=== PATIENT | female | born 1960 | race Caucasian/White ===

== ENCOUNTER 2016-08-18 12:05 | Emergency (ER) | payer SELFPAY ==
[2016-08-18 13:16] LABS: BASOPHILS 0.2 % (0.0-2.0); EOSINOPHILS 0.9 % (0-7); HEMATOCRIT 41.7 % (36.0-48.0); IMMATURE GRANULOCYTES 0.2 % (0-5); LYMPHOCYTES 29.1 % (15-50); MCH 34.4 pg (26.0-34.0); MCHC 33.6 g/dL (31.0-37.0); MCV 102.5 fL (80.0-100.0); MEAN PLATELET VOLUME 10.3 fL (7.4-10.4); MONOCYTES 7.5 % (2-11); NEUTROPHILS 62.1 % (40-80); PLATELET COUNT 220 10x3/uL (130-400); RBC 4.07 10x6/uL (4.00-5.40); RDW 13.6 % (11.5-14.5); WBC 6.5 10x3/uL (4.8-10.8)
[2016-08-18 13:40] LABS: ALBUMIN 3.4 g/dL (3.4-5.0); ANION GAP 10.7 mmol/L (8-16); BILIRUBIN - TOTAL 0.21 mg/dL (0.2-1.3); CALCIUM 9.1 mg/dL (8.5-10.1); CREATININE - SERUM 0.9 mg/dL (0.6-1.3); POTASSIUM - SERUM 4.7 mmol/L (3.5-5.1); PROTEIN - SERUM 6.7 g/dL (6.4-8.2)
== END 2016-08-18 13:53 | disposition home or self-care (01) ==
LOC: D.ER 12:05
PROVIDERS: Physician Assistant
DX: J20.9 Acute bronchitis, unspecified (principal); R50.9 Fever, unspecified; F17.200 Nicotine dependence, unspecified, uncomplicated; B20 Human immunodeficiency virus [HIV] disease